=== PATIENT | female | born 1970 | race Caucasian/White ===

== ENCOUNTER → 2017-09-13 | Outpatient (CLI) | payer OTHER ==
[~2017-09-13] MED LIST: IBUP-103 PO
--- NOTE | 2017-09-13 15:38 | DIAGNOSTIC IMAGING REPORT ---
ULTRASOUND OF THE PELVIS CLINICAL HISTORY: Pelvic mass. COMPARISON STUDY: Pelvic ultrasound dated 12/06/14. TECHNIQUE: Real-time, grayscale, and color flow sonography of the pelvis is performed transabdominally. Images are reviewed in the transverse and longitudinal planes. The endovaginal examination was declined. FINDINGS: Uterus: The uterus is enlarged and heterogeneous, measuring 10.4 x 6.2 x 6.7 cm. A heterogeneous fibroid in the fundal region measures up to 5.0 cm. Endometrium: The endometrium is distorted by the large fundal fibroid and measures at least 0.3 cm. Ovaries: The ovaries are normal in size and morphology. The right ovary measures 3.8 x 3.0 x 2.7 cm and the left ovary measures 3.1 x 1.3 x 2.1 cm. Small follicles are seen on the right. Normal Doppler waveforms are shown within both ovaries. Pelvis: There is no free fluid in the cul-de-sac. No concerning adnexal lesion is seen. IMPRESSION: 1. The uterus is enlarged and heterogeneous. A large fundal fibroid is similar to the 2015 examination. 2. The ovaries are normal as visualized on this transabdominal examination. Electronically signed by: Hiren Stephens M.D. 09/13/2017 3:37 PM Dictated Date/Time: 09/13/2017 3:34 PM
== END | disposition home or self-care (01) ==
LOC: C.ULTR 14:34
PROVIDERS: ATTEND Internal Medicine
DX: N85.2 Hypertrophy of uterus (principal)

== ENCOUNTER → 2017-09-29 | Outpatient (CLI) | payer OTHER ==
--- NOTE | 2017-09-30 07:54 | MAMMOGRAPHY REPORT ---
BILATERAL DIGITAL SCREENING MAMMOGRAM TOMOSYNTHESIS WITH CAD: 09/29/2017 CLINICAL HISTORY: Routine screening. Patient has no complaints. TECHNIQUE: Breast tomosynthesis in addition to standard 2D mammography was performed. Current study was also evaluated with a Computer Aided Detection (CAD) system. COMPARISON: Comparison is made to exams dated: 09/02/2016 mammogram, 10/03/2014 mammogram, 11/21/2013 mammogram, 11/18/2012 mammogram, 10/27/2011 mammogram, and 10/14/2010 mammogram - [facility]. BREAST COMPOSITION: There are scattered areas of fibroglandular density in both breasts. FINDINGS: No suspicious masses, calcifications, or areas of architectural distortion are noted in ei ther breast. There has been no significant interval change compared to prior exams. A biopsy marker clip is again noted within the left upper outer quadrant. IMPRESSION: ACR BI-RADS CATEGORY 2: BENIGN There is no mammographic evidence of malignancy. A 1 year screening mammogram is recommended. The pa tient will receive written notification of the results. Approximately 10% of breast cancers are not detected with mammography. A negative mammographic report should not delay biopsy if a clinically suggestive mass is present. Ronel Hurd M.D. /:09/29/2017 16:09:27 [employer]eler Machine: Sierra PRASAD)(M), [facility] letter sent: Normal 1/2 BI-RADS Code: ACR BI-RADS Category 2: Benign
== END | disposition home or self-care (01) ==
LOC: C.MAMM 13:34
PROVIDERS: ATTEND Obstetrics & Gynecology
DX: Z12.31 Encounter for screening mammogram for malignant neoplasm of breast (principal)

== ENCOUNTER → 2017-10-04 | Outpatient (CLI) | payer OTHER | END | disposition home or self-care (01) | LOC: C.PAPS 09:28 | PROVIDERS: ATTEND Obstetrics & Gynecology | DX: Z12.4 Encounter for screening for malignant neoplasm of cervix (principal) ==